=== PATIENT | female | born 1940 | race Caucasian/White ===

== ENCOUNTER 2016-11-25 05:47 | Emergency (ER) | payer MEDICARE, OTHER ==
[2016-11-25 06:14] VITALS: PULSE 60
[2016-11-25 06:35] LABS: Mean Cell Volume 92.2 fl (78-100); Mean Corpuscular Hemoglobin 29.1 pg (26-32); Mean Platelet Volume 10.3 fl (6-9.5); Platelet Count 239 K/mm3 (150-450); Red Blood Count 4.08 M/mm3 (4.1-5.4); Red Cell Distribution Width 15.8 % (11.5-14.0); White Blood Count 10.4 K/mm3 (4.0-10.5)
[2016-11-25 06:48] LABS: INR 1.27 (0.8-3.0); PROTIME 14.1 SECONDS (9.95-12.35)
[2016-11-25 06:50] LABS: ANION GAP 6.8 MEQ/L (5-15); BLOOD UREA NITROGEN 20 mg/dL (9-20); Basophil 1 % (0.0-1.0); CHLORIDE 104 mEq/L (98-107); Carbon Dioxide 31.8 mEq/L (21-32); Eosinophil 6 % (0.00-3.0); Glucose 131 MG/DL (70-110); Platelet Estimate NORMAL (NORMAL); Potassium 4.2 mEq/L (3.5-5.1); SODIUM 138 mEq/L (136-145); Total Cells Counted 100
--- NOTE | 2016-11-25 07:09 | ERPHSYRPT ---
- History of Present Illness Time Seen by Provider: 11/25/16 06:20 Source: patient, EMS Patient Subjective Stated Complaint: per ems, pt was being taken to shower and the shower chair tipped over and she fell out. pt states she hit her head and back. denies pain elsewhere Triage Nursing Assessment: papt alert and answers questions. repetittive speech at times. respirations nonlabored with lungs cta. 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 lower ext weakness noted, pt states is ner norm. bruising noted to lt chest around paemaker. bruising noted to lt abd. bleeding from head noted with small lac and hematoma. sutured by dr goldstein. Physician History: PATIENT WITH HISTORY OF TYPE 2 DIABETES, HYPERTENSION, PACEMAKER INSERTION SLIPPED OUT OF CHAIR IN SHOWER SUSTAINED BLEEDING FROM BACK OF HEAD AT SITE OF SCALP STAPLE, BLEEDING FROM WOUND. DENIES LOSS OF CONSCIOUSNESS, NECK PAIN, FOCAL NUMBNESS, TINGLING OR WEAKNESS IN EXTREMITIES. HAS PAIN IN LEFT LOWER LEG. Occurred: just prior to arrival Reason for Fall: slipped Injuries/Pain Location: head Loss of Consciousness: no loss of consciousness Quality: fullness Severity of Pain-Max: mild Modifying Factors: Improves With: cold therapy Associated Symptoms (Fall): denies symptoms Allergies/Adverse Reactions: Penicillins Allergy (Verified 11/25/16 06:24) Hives Home Medications: Glipizide 5 mg [Glucotrol 5 MG] 10 mg PO DAILY 03/04/14 [History] Apixaban [Eliquis] 2.5 mg PO BID 11/25/16 [History] Aspirin 81 mg PO DAILY 11/25/16 [History] Calcium Carbonate [Calcium] 500 mg PO DAILY 11/25/16 [History] Donepezil HCl 10 mg [Aricept 10 MG] 10 mg PO BID 11/25/16 [History] Glucagon 1 mg [GlucaGen 1 MG] 1 mg .ROUTE 11/25/16 [History] Hydrochlorothiazide 25 mg [hydroDIURIL 25 MG] 12.5 mg PO DAILY 11/25/16 [ History] Insulin Detemir [Levemir] 10 unit SQ HS 11/25/16 [History] Lisinopril 20 mg [Zestril 20 MG] 20 mg PO DAILY 11/25/16 [History] Magnesium Hydroxide 30 ml [Milk of Magnesia 30 ml] 30 ml PO BID PRN [History] Magnesium Oxide 400 mg [Mag-Ox 400] 400 mg PO BID 11/25/16 [History] Memantine HCl [Namenda Xr] 28 mg PO DAILY 11/25/16 [History] Potassium Chloride 20 Meq [Klor-Con 20 MEQ] 20 meq PO DAILY 11/25/16 [History] Hx Tetanus, Diphtheria Vaccination/Date Given: Yes (UNKNOWN) Hx Influenza Vaccination/Date Given: Yes Hx Pneumococcal Vaccination/Date Given: Yes - Review of Systems Constitutional: No Fever, No Chills Eyes: No Symptoms Ears, Nose, & Throat: No Symptoms Respiratory: No Symptoms, No Cough, No Dyspnea Cardiac: No Symptoms, No Chest Pain, No Edema, No Syncope Abdominal/Gastrointestinal: No Abdominal Pain, No Nausea, No Vomiting, No Diarrhea Genitourinary Symptoms: No Symptoms, No Dysuria Musculoskeletal: No Symptoms, No Back Pain, No Neck Pain Skin: No Symptoms, No Rash Neurological: No Symptoms, No Dizziness, No Focal Weakness, No Sensory Changes Psychological: No Symptoms Endocrine: No Symptoms All Other Systems: Reviewed and Negative - Past Medical History Pertinent Past Medical History: Yes Neurological History: Dementia, Other ENT History: No Pertinent History Cardiac History: Deep Vein Thrombosis, Hypertension Respiratory History: No Pertinent History Endocrine Medical History: Diabetes Type II Musculoskeletal History: No Pertinent History GI Medical History: No Pertinent History History: No Pertinent History Psycho-Social History: No Pertinent History Female Reproductive Disorders: No Pertinent History Other Medical History: Parkinsons - Past Surgical History Past Surgical History: Yes Neuro Surgical History: No Pertinent History Cardiac: No Pertinent History, Pacemaker Respiratory: No Pertinent History Gastrointestinal: No Pertinent History Genitourinary: No Pertinent History Musculoskeletal: Orthopedic Surgery Female Surgical History: Other Other Surgical History: D&C, tonsils, recent pacemaker - Social History Smoking Status: Never smoker Exposure to second hand smoke: No Drug Use: none Patient Lives Alone: No - Nursing Vital Signs Nursing Vital Signs: Initial Vital Signs Temperature 98.2 F Temperature Source Oral Pulse Rate 60 Respiratory Rate 22 Blood Pressure [] 180/78 Pain Intensity 0 - [place] Coma Score Best Eye Response ([place]): (4) open spontaneously Best Verbal Response ([place]): (5) oriented Best Motor Response ([place]): (6) obeys commands [place] Total: 15 - Physical Exam General Appearance: no apparent distress, alert Head Injury: active bleeding, lacerations (1.2CM LACERATION OCCIPITAL SCALP), swelling (LEFT SUPERIOR OCCIPITAL SCALP, NO EVIDENCE OF STAPLE), tenderness Eye Exam: PERRL/EOMI ENT Exam: airway nml Neck Exam: normal inspection, other (NO POST CERVICAL SPINAL TENDERNESS), No tenderness Respiratory/Chest Exam: normal breath sounds, other (PACEMAKER WITH HEMATOMA YELLOWISH DISCOLORATION), No chest tenderness, No respiratory distress Cardiovascular Exam: normal heart sounds, regular rate/rhythm Gastrointestinal Exam: soft, No tenderness, No distention, No guarding, No ecchymosis Back Exam: normal inspection, No vertebral tenderness Extremity Exam: normal inspection, normal range of motion, pelvis stable, tenderness (LEFT MID THIGH, TENDERNESS LEFT KNEE AND MID LEFT CIFUENTES, NO ECCHYMOSIS, LEFT PEDIS PULSE 2+), No deformities Peripheral Pulses: carotid (R): 2+, carotid (L): 2+, femoral (R): 2+, femoral (L ): 2+, dorsalis-pedis (R): 2+, dorsalis-pedis (L): 2+ Neurologic Exam: alert, oriented x 3, cooperative, sensation nml, No motor deficits Skin Exam: normal color, warm, dry SpO2 Interpretation: normal SpO2: 98 Oxygen Delivery: Room Air Procedures - Laceration/Wound Repair Head Wound Location: head (OCCIPITAL SCALP, NO EVIDENCE OF FOREIGN BODY) Wound Length (cm): 1.2 Wound's Depth, Shape: linear Wound Explored: clean Irrigated: Yes Hibiclens Prep: Yes Anesthesia: local, 2% Lidocaine Volume Anesthetic (ccs): 3 Wound Repaired With: sutures Suture Size/Type: 3-0, nylon - Radiology Exams Pelvis X-ray Interpretation: Interpreted by me, Negative, No Fracture Left Lower Leg X-ray Interpretation: Interpreted by me, No Fracture Left Femur X-ray Interpretation: Interpreted by me, Negative, No Fracture Left Knee X-ray Interpretation: Interpreted by me, Negative, No Fracture - CT Exams Cervical Spine CT Interpretation: Tele-radiologist Report, DJD (MILD CHANGES), No Fracture, No Subluxation Head CT Interpretation: Tele-radiologist Report, No/Intracranial Hemorrhag Ordered Tests: Active Orders 24 hr Category Date Time Status CERVICAL SPINE WO CONTRAST [CT] Stat Exams 11/25/16 06:17 Taken FEMUR Stat Exams 11/25/16 06:18 Taken HEAD WITHOUT CONTRAST [CT] Stat Exams 11/25/16 06:17 Taken KNEE (3 VIEWS) Stat Exams 11/25/16 06:19 Taken LOWER LEG Stat Exams 11/25/16 06:19 Taken PELVIS (1 OR 2 VIEWS) Stat Exams 11/25/16 06:18 Taken BMP Stat Lab 11/25/16 06:30 Completed CBC W DIFF Stat Lab 11/25/16 06:30 Completed Manual Differential NC Stat Lab 11/25/16 06:30 Completed PROTIME WITH INR Stat Lab 11/25/16 06:30 Completed Lab/Rad Data: Laboratory Result Diagrams 11/25/16 06:30 11/25/16 06:30 Laboratory Results 11/25/16 11/25/16 11/25/16 Range/Units 06:30 06:30 06:30 WBC 10.4 (4.0-10.5) K/mm3 RBC 4.08 L (4.1-5.4) M/mm3 Hgb 11.9 L (12.0-16.0) gm/dl Hct 37.6 (35-47) % MCV 92.2 (78-100) fl MCH 29.1 (26-32) pg MCHC 31.6 L (32-36) g/dl RDW 15.8 H (11.5-14.0) % Plt Count 239 (150-450) K/mm3 MPV 10.3 H (6-9.5) fl Segmented Neutrophils 74 H (36.0-66.0) % Lymphocytes (Manual) 15 L (24-44) % Monocytes (Manual) 4 (0.0-12.0) % Eosinophils (Manual) 6 H (0.00-3.0) % Basophils (Manual) 1 (0.0-1.0) % Differential Comment NORMAL Platelet Estimate NORMAL (NORMAL) INR 1.27 (0.8-3.0) Sodium 138 (136-145) mEq/L Potassium 4.2 (3.5-5.1) mEq/L Chloride 104 (98-107) mEq/L Carbon Dioxide 31.8 (21-32) mEq/L Anion Gap 6.8 (5-15) MEQ/L BUN 20 (9-20) mg/dL Creatinine 0.93 (0.55-1.30) mg/dl Estimated GFR > 60 ML/MIN Glucose 131 H (70-110) MG/DL Calcium 8.7 (8.5-10.1) mg/dL - Progress Counseled pt/family regarding: lab results, diagnosis, need for follow-up, rad results - Departure Time of Disposition: 07:30 Departure Disposition: Home Clinical Impression: OCCIPITAL SCALP LACERATION, CONTUSION LEFT KNEE, CIFUENTES Condition: Stable Critical Care Time: No Referrals: CLIFF LOWRY [Primary Care Provider] - Additional Instructions: CONTINUE ALL CURRENT MEDICATIONS. CONSULT YOUR FAMILY PHYSICIAN FOR FOLLOWUP IN 1 WEEK.
[2016-11-25 07:39] VITALS: BP 180/78
[2016-11-25 07:42] VITALS: O2SAT 98
--- NOTE | 2016-11-25 09:19 | XRAY ---
Indication: Pain following fall. Multiple contiguous axial images obtained through the head without contrast. Comparison: None Age-appropriate global atrophy and minimal periventricular degenerative micro-ischemia bilateral periaortic acute intracranial hemorrhage, abnormal extra-axial fluid collection, or mass effect. Fourth ventricle is midline without hydrocephalus. Small left posterior scalp hematoma. Bony calvarium intact. Visualized paranasal sinuses and mastoid air cells are pneumatized and clear. Impression: 1. Left posterior scalp hematoma. No underlying fracture or acute intracranial abnormalities. 2. Global atrophy and degenerative micro-ischemia consistent with patient's age. Comment: Preliminary interpretation was made by [facility]. No discrepancy. CT DI 52.13
--- NOTE | 2016-11-25 09:21 | XRAY ---
Indication: Pain following fall. Multiple contiguous axial images obtained through the cervical spine. Sagittal and coronal reformatted images obtained. Comparison: None Axial images negative for acute fracture, suspicious bony lesions, or spinal canal stenosis. Very minimal multilevel degenerative facet arthropathy. Sagittal and coronal reformatted images demonstrates normal alignment with disc spaces maintained. No acute compression fracture, subluxation, or jumped facet. Normal-appearing craniocervical junction. Visualized noncontrasted soft tissues demonstrates mild carotid calcifications bilaterally. Lung apices clear. CT head reported separately. Impression: Minimal degenerative changes. Negative for acute fracture/subluxation. Comment: Preliminary interpretation was made by [facility]. No discrepancy. CT DI 113.36
--- NOTE | 2016-11-25 09:27 | XRAY ---
Indication: Pain following fall. Comparison: None 3 views of the left knee demonstrates osteopenia, previous total knee arthroplasty with intact prosthesis, and faint vascular calcifications. No other bony, articular, or soft tissue abnormalities.
--- NOTE | 2016-11-25 09:27 | XRAY ---
Indication: Pain following fall. Comparison: None 2 views of the left lower leg demonstrates osteopenia, previous total knee arthroplasty, tiny heel spurs, and faint vascular calcifications. No other bony, articular, or soft tissue abnormalities.
--- NOTE | 2016-11-25 09:29 | XRAY ---
Indication: Pain following fall. Comparison: None AP pelvis demonstrates osteopenia, old proximal left femur fracture with 3 intact orthopedic screws, bilateral superior acetabular spurring/sclerosis, lower lumbar degenerative changes, and pelvic phleboliths. No other bony, articular, or soft tissue abnormalities.
--- NOTE | 2016-11-25 09:30 | XRAY ---
Indication: Pain following fall. Comparison: None 2 views of the left femur demonstrates osteopenia, old proximal femur fracture with 3 intact orthopedic screws, total knee arthroplasty, superior acetabular spurring/sclerosis, scattered faint vascular calcifications, and pelvic phleboliths. No other bony, articular, or soft tissue abnormalities.
== END 2016-11-25 08:23 ==
LOC: ED 05:47
PROC: 0HQ0XZZ Repair Scalp Skin, External Approach (ICD-10-PCS; principal; 2016-11-25)
DX: S01.01XA Laceration without foreign body of scalp, initial encounter (principal); S80.02XA Contusion of left knee, initial encounter; S80.12XA Contusion of left lower leg, initial encounter; W07.XXXA Fall from chair, initial encounter; Y93.E1 Activity, personal bathing and showering; Y92.128 Other place in nursing home as the place of occurrence of the external cause; E11.9 Type 2 diabetes mellitus without complications; I10 Essential (primary) hypertension; Z95.0 Presence of cardiac pacemaker; M54.2 Cervicalgia; R20.2 Paresthesia of skin; M79.662 Pain in left lower leg
CPT/HCPCS: 12001; 36415; 70450; 72125; 72170; 73552; 73562; 73590; 80048; 85025; 85610; 99284

== ENCOUNTER 2016-12-18 22:17 | Emergency (ER) | payer MEDICARE, OTHER ==
[2016-12-18 22:23] VITALS: PULSE 65
--- NOTE | 2016-12-18 22:49 | ERPHSYRPT ---
- History of Present Illness Time Seen by Provider: 12/18/16 22:42 Source: patient Exam Limitations: no limitations Patient Subjective Stated Complaint: pt states she had ce removed from her head a few weeks ago. states she was combing her hair tonight and her head began bleeding again. cont to bleed for a few hours before coming to er. Triage Nursing Assessment: pt alert and oriented, answers questions approp. pt in per wheelchair, transfers from wheelchair to stretcher with assist of 2. unsteady gait noted. skin pink warm and dry. hematoma noted to top lt head with steady bleeding. pressure applied and bulky drsg applied. Physician History: The patient is a 76-year-old female who comes in from assisted living skilled nursing where she has helped for dementia complaining that she riggins her hair tonight and caused bleeding at the site of a skin treatment a few weeks ago. She is a poor historian. She states she had 2 lumps frozen on the top of her head several weeks ago. She also said that after that she fell out of her wheelchair causing a cut to the top of her head that was repaired with ce. The ce have been removed. Tonight the comb scraped the lumps that had been frozen causing 1 to bleed. She takes Elaquis but doesn't know why. Her past medical history is significant for dementia, hypertension, diabetes, and recent skin disorder of her scalp. Timing/Duration: hour(s) (3) Quality: other (bleeding) Severity: moderate Location: scalp Possible Causes: other (scrape to skin lesion) Modifying Factors: Improves With: other Associated Symptoms: denies symptoms Allergies/Adverse Reactions: Penicillins Allergy (Verified 12/18/16 22:42) Hives Home Medications: Glipizide 5 mg [Glucotrol 5 MG] 10 mg PO DAILY 03/04/14 [History] Apixaban [Eliquis] 2.5 mg PO BID 11/25/16 [History] Aspirin 81 mg PO DAILY 11/25/16 [History] Calcium Carbonate [Calcium] 500 mg PO DAILY 11/25/16 [History] Donepezil HCl 10 mg [Aricept 10 MG] 10 mg PO BID 11/25/16 [History] Glucagon 1 mg [GlucaGen 1 MG] 1 mg .ROUTE 11/25/16 [History] Hydrochlorothiazide 25 mg [hydroDIURIL 25 MG] 12.5 mg PO DAILY 11/25/16 [ History] Insulin Detemir [Levemir] 10 unit SQ HS 11/25/16 [History] Lisinopril 20 mg [Zestril 20 MG] 20 mg PO DAILY 11/25/16 [History] Magnesium Hydroxide 30 ml [Milk of Magnesia 30 ml] 30 ml PO BID PRN [History] Magnesium Oxide 400 mg [Mag-Ox 400] 400 mg PO BID 11/25/16 [History] Memantine HCl [Namenda Xr] 28 mg PO DAILY 11/25/16 [History] Potassium Chloride 20 Meq [Klor-Con 20 MEQ] 20 meq PO DAILY 11/25/16 [History] Hx Tetanus, Diphtheria Vaccination/Date Given: Yes (UNKNOWN) Hx Influenza Vaccination/Date Given: Yes Hx Pneumococcal Vaccination/Date Given: Yes - Review of Systems Constitutional: No Fever, No Chills Eyes: No Symptoms Ears, Nose, & Throat: No Symptoms Respiratory: No Cough, No Dyspnea Cardiac: No Chest Pain, No Edema, No Syncope Abdominal/Gastrointestinal: No Abdominal Pain, No Nausea, No Vomiting, No Diarrhea Genitourinary Symptoms: No Dysuria Musculoskeletal: No Back Pain, No Neck Pain Skin: Skin Lesions Neurological: No Dizziness, No Focal Weakness, No Sensory Changes Psychological: No Symptoms Endocrine: No Symptoms Hematologic/Lymphatic: No Symptoms Immunological/Allergic: No Symptoms All Other Systems: Reviewed and Negative - Past Medical History Pertinent Past Medical History: Yes Neurological History: Dementia, Other ENT History: No Pertinent History Cardiac History: Deep Vein Thrombosis, Hypertension Respiratory History: No Pertinent History Endocrine Medical History: Diabetes Type II Musculoskeletal History: No Pertinent History GI Medical History: No Pertinent History History: No Pertinent History Psycho-Social History: No Pertinent History Female Reproductive Disorders: No Pertinent History Other Medical History: Parkinsons - Past Surgical History Past Surgical History: Yes Neuro Surgical History: No Pertinent History Cardiac: No Pertinent History, Pacemaker Respiratory: No Pertinent History Gastrointestinal: No Pertinent History Genitourinary: No Pertinent History Musculoskeletal: Orthopedic Surgery Female Surgical History: Other Other Surgical History: D&C, tonsils, recent pacemaker - Social History Smoking Status: Never smoker Exposure to second hand smoke: No Drug Use: none Patient Lives Alone: No - Nursing Vital Signs Nursing Vital Signs: Initial Vital Signs Temperature 98.1 F Temperature Source Oral Pulse Rate 65 Respiratory Rate 18 Blood Pressure [Right Arm] 140/79 Pain Intensity 3 - Physical Exam General Appearance: no apparent distress, alert Eye Exam: PERRL/EOMI, eyes nml inspection Ears, Nose, Throat Exam: normal ENT inspection, pharynx normal, moist mucous membranes Neck Exam: normal inspection, non-tender, supple, full range of motion Respiratory Exam: normal breath sounds, lungs clear, No respiratory distress Cardiovascular Exam: regular rate/rhythm, normal heart sounds Gastrointestinal/Abdomen Exam: soft, mass, No tenderness Pelvic Exam: not done, uterine tenderness Back Exam: normal inspection, normal range of motion, No CVA tenderness, No vertebral tenderness Extremity Exam: normal inspection, normal range of motion Neurologic Exam: alert, oriented x 3, cooperative, normal mood/affect, sensation nml, No motor deficits Skin Exam: other (Examination of the scalp reveals at the left side of the occiput a swollen area that appears to have a hemangioma under the surface. There is a small pinpoint opening that is slowly bleeding. Slight pressure does cause stasis bleeding.) SpO2 Interpretation: normal SpO2: 96 Oxygen Delivery: Room Air Procedures - Laceration/Wound Repair Left Occipital Wound Location: Left, head Wound Length (cm): 1.5 (hemagioma) Wound's Depth, Shape: superficial Wound Explored: clean Hibiclens Prep: Yes Progress: 12/18/16 23:05 The patient has had apparently looks like a 1.5 cm hemangioma the left side of the occiput on the scalp. There is a small region of the hemangioma that is oozing blood. An attempt was made with for several nitrate sticks to stop the bleeding. The hemangioma was quickly wrapped with a pressure dressing. Patient tolerated the procedure well. There was stasis of the bleeding at the time of application of the pressure bandage. 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 A heme angioma is a collection of blood vessels. This site has started to bleed. Silver nitrate was applied to stop the bleeding as well as application of a pressure bandage. Keep the bandage in place. Call the physician you saw for treatment of these hemangiomas for follow -up within 1-2 days.
[2016-12-18] MEDS ORDERED: ARZOL Silver Nitrate Applicator TP ONE (22:51)
[2016-12-18] MEDS ORDERED: ARZOL Silver Nitrate Applicator TP SCH (23:00)
[2016-12-18 23:31] VITALS: BP 114/50; O2SAT 97
== END 2016-12-18 23:30 | disposition home or self-care (01) ==
LOC: ED 22:17
DX: D18.09 Hemangioma of other sites (principal); Z79.01 Long term (current) use of anticoagulants
CPT/HCPCS: 99283; A9270-GY

== ENCOUNTER 2017-09-24 16:33 | Inpatient (IN) | payer MEDICARE, OTHER ==
[2017-09-24] MEDS ORDERED: Sodium Chloride 0.9% 1000 ML 1,000 ML IV SCH (17:15)
--- NOTE | 2017-09-24 17:17 | ERPHSYRPT ---
- History of Present Illness Time Seen by Provider: 09/24/17 17:11 Source: patient Exam Limitations: no limitations Patient Subjective Stated Complaint: nh and ems report patient has had low b/p today. patient denies any c/o at this time Triage Nursing Assessment: arrives per ems. skin cool to touch, nailbeds dusky. resp nonlabored. has no c/o at this time. patient normally confused but is alert and answering questions. Physician History: 77-year-old white female with history of dementia, DVT, hypertension, type 2 diabetes, Parkinson's and cardiac pacemaker. Patient arrives via medics patient apparently was noted to have decreased blood pressure at the detention. states she has had some states she has had some pain in her hands that she denies any other complaints. She arrives with a blood pressure 122/46 sats are 99% temperature is 96.7 rectally. Past medical history includes dementia, DVT, hypertension, diabetes type 2, Parkinson's. Past surgical history includes pacer, orthopedic surgery, tonsils. Timing/Duration: today Severity: moderate Modifying Factors: Improves With: nothing Associated Symptoms: weakness, other (decreased blood pressure at detention) , No nausea, No vomiting, No abdominal pain, No shortness of breath, No heartburn, No diaphoresis, No cough, No chills, No chest pain, No fever, No headaches, No loss of appetite, No malaise, No rash, No syncope, No seizure Allergies/Adverse Reactions: Penicillins Allergy (Verified 12/18/16 22:42) Hives Home Medications: Glipizide 5 mg [Glucotrol 5 MG] 10 mg PO DAILY 03/04/14 [History] Apixaban [Eliquis] 2.5 mg PO BID 11/25/16 [History] Aspirin 81 mg PO DAILY 11/25/16 [History] Calcium Carbonate [Calcium] 500 mg PO DAILY 11/25/16 [History] Donepezil HCl 10 mg [Aricept 10 MG] 10 mg PO BID 11/25/16 [History] Glucagon 1 mg [GlucaGen 1 MG] 1 mg .ROUTE 11/25/16 [History] Hydrochlorothiazide 25 mg [hydroDIURIL 25 MG] 12.5 mg PO DAILY 11/25/16 [ History] Insulin Detemir [Levemir] 10 unit SQ HS 11/25/16 [History] Lisinopril 20 mg [Zestril 20 MG] 20 mg PO DAILY 11/25/16 [History] Magnesium Hydroxide 30 ml [Milk of Magnesia 30 ml] 30 ml PO BID PRN [History] Magnesium Oxide 400 mg [Mag-Ox 400] 400 mg PO BID 11/25/16 [History] Memantine HCl [Namenda Xr] 28 mg PO DAILY 11/25/16 [History] Potassium Chloride 20 Meq [Klor-Con 20 MEQ] 20 meq PO DAILY 11/25/16 [History] Hx Tetanus, Diphtheria Vaccination/Date Given: Yes Hx Influenza Vaccination/Date Given: Yes Hx Pneumococcal Vaccination/Date Given: Yes - Review of Systems Constitutional: Weakness Eyes: No Symptoms Ears, Nose, & Throat: No Symptoms Respiratory: No Cough, No Dyspnea Cardiac: No Chest Pain, No Edema, No Syncope Abdominal/Gastrointestinal: No Abdominal Pain, No Nausea, No Vomiting, No Diarrhea Genitourinary Symptoms: No Dysuria Musculoskeletal: Other (Patient states she has pain in her hands), No Back Pain , No Neck Pain Neurological: No Dizziness, No Focal Weakness, No Sensory Changes Psychological: No Symptoms Endocrine: No Symptoms All Other Systems: Reviewed and Negative - Past Medical History Pertinent Past Medical History: Yes Neurological History: Dementia, Other ENT History: No Pertinent History Cardiac History: Deep Vein Thrombosis, Hypertension Respiratory History: No Pertinent History Endocrine Medical History: Diabetes Type II Musculoskeletal History: No Pertinent History GI Medical History: No Pertinent History History: No Pertinent History Psycho-Social History: No Pertinent History Female Reproductive Disorders: No Pertinent History Other Medical History: Parkinsons - Past Surgical History Past Surgical History: Yes Neuro Surgical History: No Pertinent History Cardiac: No Pertinent History, Pacemaker Respiratory: No Pertinent History Gastrointestinal: No Pertinent History Genitourinary: No Pertinent History Musculoskeletal: Orthopedic Surgery Female Surgical History: Other Other Surgical History: D&C, tonsils, recent pacemaker - Social History Smoking Status: Never smoker Exposure to second hand smoke: No Drug Use: none Patient Lives Alone: No - Female History Hx Now: No - Nursing Vital Signs Nursing Vital Signs: Initial Vital Signs Temperature 96.7 F 02/11/18 16:34 Pulse Rate 66 09/24/17 16:34 Respiratory Rate 20 09/24/17 16:34 Blood Pressure 122/46 09/24/17 16:34 O2 Sat by Pulse Oximetry 99 09/24/17 16:34 Pain Scale Pain Intensity 4 - Physical Exam General Appearance: other (Elderly white female somewhat somnolent arouses easily oriented to person and place) Eye Exam: PERRL/EOMI, eyes nml inspection Ears, Nose, Throat Exam: normal ENT inspection, TMs normal, pharynx normal, moist mucous membranes Neck Exam: normal inspection, non-tender, supple, full range of motion Respiratory Exam: normal breath sounds, lungs clear, No respiratory distress Cardiovascular Exam: regular rate/rhythm, normal heart sounds, normal peripheral pulses Gastrointestinal/Abdomen Exam: soft, normal bowel sounds, No tenderness, No mass Back Exam: normal inspection, normal range of motion, No CVA tenderness, No vertebral tenderness Extremity Exam: normal inspection, normal range of motion, pelvis stable Neurologic Exam: other (somnolent and arouses easily, cranial nerves II through XII intact, oriented to person and place,moves all extremities) Skin Exam: other (peripheral extremity somewhat dusky) Lymphatic Exam: No adenopathy SpO2 Interpretation: normal SpO2: 99 Oxygen Delivery: Room Air - Course Nursing assessment & vital signs reviewed: Yes EKG Interpreted by Me: RATE (64 bpm), Other (EKG paced rhythm, 64 bpm, normal axis, no acute ST or T wave changes) - Radiology Exams Chest X-ray Interpretation: Interpreted by me, Other (no acute disease process noted.) Ordered Tests: Active Orders 24 hr Category Date Time Status Accucheck STAT Care 09/24/17 17:11 Active EKG-ER Only STAT Care 09/24/17 17:08 Active Werner [Catheter-[place] Werner] STAT Care 09/24/17 17:54 Active IV Insertion STAT Care 09/24/17 17:08 Active CHEST 1 VIEW (PORTABLE) Stat Exams 09/24/17 17:09 Taken AMYLASE Stat Lab 09/24/17 17:42 Completed BLOOD CULTURE Stat Lab 09/24/17 17:42 Received CBC W DIFF Stat Lab 09/24/17 17:42 Completed CMP Stat Lab 09/24/17 17:42 Completed CULTURE,URINE Stat Lab 09/24/17 17:41 Received LIPASE Stat Lab 09/24/17 17:42 Completed Lactic Acid Stat Lab 09/24/17 17:08 Completed Manual Differential NC Stat Lab 09/24/17 17:42 Completed NT PRO BNP Routine Lab 09/24/17 17:42 Completed TROPONIN Q3H Lab 09/24/17 17:42 Completed TROPONIN Q3H Lab 09/24/17 20:15 Ordered TROPONIN Q3H Lab 09/24/17 23:15 Ordered TROPONIN Q3H Lab 09/25/17 02:15 Ordered TROPONIN Q3H Lab 09/25/17 05:15 Ordered UA W/ MICROSCOPIC Stat Lab 09/24/17 17:09 Completed VENOUS BLOOD GAS Stat Lab 09/24/17 17:10 Completed Transfer Order Routine Transfer 09/24/17 Ordered Medication Summary Generic Name Dose Route Start Last Admin Trade Name Freq PRN Reason Stop Dose Admin Sodium Chloride 1,000 mls @ 100 mls/hr 09/24/17 17:15 09/24/17 17:29 Sodium Chloride 0.9% 1000 Ml IV 10/24/17 17:14 100 mls/hr .Q10H ZEUS Administration Lab/Rad Data: Laboratory Result Diagrams 09/24/17 17:42 09/24/17 17:42 Laboratory Results 09/24/17 09/24/17 09/24/17 Range/Units 17:42 17:42 17:42 WBC 20.0 H (4.0-10.5) K/mm3 RBC 4.25 (4.1-5.4) M/mm3 Hgb 13.2 (12.0-16.0) gm/dl Hct 40.2 (35-47) % MCV 94.6 (78-100) fl MCH 31.1 (26-32) pg MCHC 32.8 (32-36) g/dl RDW 15.6 H (11.5-14.0) % Plt Count 264 (150-450) K/mm3 MPV 12.0 H (6-9.5) fl Segmented Neutrophils 87 H (36.0-66.0) % Band Neutrophils 1 (0.0-2.0) % Lymphocytes (Manual) 9 L (24-44) % Monocytes (Manual) 3 (0.0-12.0) % Differential Comment NORMAL Platelet Estimate NORMAL (NORMAL) VBG pH (7.32-7.42) VBG pCO2 at Pat Temp (42-55) mm/Hg VBG pO2 at Pat Temp (25-40) mm/Hg VBG HCO3 (22-28) meq/L VBG O2 Sat ([place]) (95-100) VBG Base Excess (-2.0-2.0) VBG Hemoglobin VBG Carboxyhemoglobin (0.0-6.9) % T HGB POC Potassium (3.5-5.1) Sodium 136 (136-145) mEq/L Potassium 5.3 H (3.5-5.1) mEq/L Chloride 104 (98-107) mEq/L Carbon Dioxide 21.6 (21-32) mEq/L Anion Gap 15.7 H (5-15) MEQ/L BUN 56 H (9-20) mg/dL Creatinine 3.34 H (0.55-1.30) mg/dl Estimated GFR 14 ML/MIN Glucose 350 H (70-110) MG/DL Lactic Acid (0.4-2.0) Calcium 9.4 (8.5-10.1) mg/dL Total Bilirubin 0.60 (0.2-1.0) mg/dL AST 25 (15-37) U/L ALT 9 L (12-78) U/L Alkaline Phosphatase 69 (46-116) U/L Troponin I < 0.017 (0.000-0.056) ng/ml NT-Pro-B Natriuret Pep 616 H (0-450) pg/ml Serum Total Protein 7.5 (6.4-8.2) gm/dL Albumin 3.8 (3.4-5.0) g/dL Amylase 77 (25-115) U/L Lipase 385 (73-393) U/L Ur Collection Type Urine Color (YELLOW) Urine Appearance (CLEAR) Urine pH (5-6) Ur Specific [place] (1.005-1.025) Urine Protein (Negative) Urine Ketones (NEGATIVE) Urine Blood (0-5) Dago/ul Urine Nitrite (NEGATIVE) Urine Bilirubin (NEGATIVE) Urine Urobilinogen (0-1) mg/dL Ur Leukocyte Esterase (NEGATIVE) Urine Microscopic RBC (0-2) /HPF Urine Microscopic WBC (0-5) /HPF Ur Epithelial Cells (FEW) /HPF Amorphous Crystals (NEGATIVE) /HPF Urine Bacteria (NEGATIVE) /HPF Urine Mucus (NEGATIVE) /HPF Urine Culture Reflexed Urine Glucose (NEGATIVE) mg/dL Specimen Received 09/24/17 09/24/17 09/24/17 Range/Units 17:10 17:09 17:08 WBC (4.0-10.5) K/mm3 RBC (4.1-5.4) M/mm3 Hgb (12.0-16.0) gm/dl Hct (35-47) % MCV (78-100) fl MCH (26-32) pg MCHC (32-36) g/dl RDW (11.5-14.0) % Plt Count (150-450) K/mm3 MPV (6-9.5) fl Segmented Neutrophils (36.0-66.0) % Band Neutrophils (0.0-2.0) % Lymphocytes (Manual) (24-44) % Monocytes (Manual) (0.0-12.0) % Differential Comment Platelet Estimate (NORMAL) VBG pH 7.30 L (7.32-7.42) VBG pCO2 at Pat Temp 47 (42-55) mm/Hg VBG pO2 at Pat Temp 16 L (25-40) mm/Hg VBG HCO3 23.1 (22-28) meq/L VBG O2 Sat ([place]) 30.9 L (95-100) VBG Base Excess -3.6 L (-2.0-2.0) VBG Hemoglobin 13.9 VBG Carboxyhemoglobin 1.6 (0.0-6.9) % T HGB POC Potassium 5.4 H (3.5-5.1) Sodium (136-145) mEq/L Potassium (3.5-5.1) mEq/L Chloride (98-107) mEq/L Carbon Dioxide (21-32) mEq/L Anion Gap (5-15) MEQ/L BUN (9-20) mg/dL Creatinine (0.55-1.30) mg/dl Estimated GFR ML/MIN Glucose (70-110) MG/DL Lactic Acid 1.2 (0.4-2.0) Calcium (8.5-10.1) mg/dL Total Bilirubin (0.2-1.0) mg/dL AST (15-37) U/L ALT (12-78) U/L Alkaline Phosphatase (46-116) U/L Troponin I (0.000-0.056) ng/ml NT-Pro-B Natriuret Pep (0-450) pg/ml Serum Total Protein (6.4-8.2) gm/dL Albumin (3.4-5.0) g/dL Amylase (25-115) U/L Lipase (73-393) U/L Ur Collection Type CATH Urine Color YELLOW (YELLOW) Urine Appearance CLOUDY (CLEAR) Urine pH 5.0 (5-6) Ur Specific [place] 1.020 (1.005-1.025) Urine Protein 30 (Negative) Urine Ketones NEGATIVE (NEGATIVE) Urine Blood 50 (0-5) [place]ago/ul Urine Nitrite NEGATIVE (NEGATIVE) Urine Bilirubin NEGATIVE (NEGATIVE) Urine Urobilinogen NORMAL (0-1) mg/dL Ur Leukocyte Esterase NEGATIVE (NEGATIVE) Urine Microscopic RBC 2-5 (0-2) /HPF Urine Microscopic WBC 2-5 (0-5) /HPF Ur Epithelial Cells MODERATE (FEW) /HPF Amorphous Crystals MODERATE (NEGATIVE) /HPF Urine Bacteria MODERATE (NEGATIVE) /HPF Urine Mucus MODERATE (NEGATIVE) /HPF Urine Culture Reflexed Cancelled Urine Glucose 1000 (NEGATIVE) mg/dL Specimen Received 09/24/17 1755 - Progress Progress: improved Progress Note: 09/24/17 18:43 77-year-old white female brought from the detention with complaint of decreased blood pressure at the detention. On arrival patient was somnolent but aroused easily she had dusky coloration to her fingers and had been complaining of some pain in her hands. Patient had a normal oxygen saturation in the emergency room this was taken on her ear. Patient with an EKG which showed paced rhythm 64 bpm normal axis no acute ST or T wave changes. Patient was also noted to have a chest x-ray which was normal patient was noted to have a pH of 7.3 and a PCO2 of 47 venous gases lactate was 1.2 urinalysis specific gravity 1.20 pH 52-5 red cells 2-5 white cells patient' s white count was elevated at 20 hemoglobin was 13 hematocrit 40.2 patient was noted to have an elevated BUN of 56 creatinine of 2.34 sodium of 136 and potassium was elevated at 5.3 patient had a BNP of 616 troponin was less than 0.017 Patient was given IV normal saline initially started at 125 mL per hour then given a bolus of 250 mL and then IV was turned down to 125 mL per hour. Patient was afebrile. On recheck patient's lungs were clear patient appeared to be more awake and alert she had improved color of her distal extremities. I discussed the case with Dr. Brooks. Will plan to place patient on observation telemetry. It is noted that patient is a DO NOT RESUSCITATE status. Patient will be continued with IV fluids CBC CMP in the morning. Blood cultures urine cultures are pending. - Departure Time of Disposition: 17:20 Departure Disposition: Observation Clinical Impression: Dehydration Renal failure Qualifiers: Renal failure chronicity: unspecified chronicity Qualified Code(s): N19 - Unspecified kidney failure Hypotension Qualifiers: Hypotension type: unspecified hypotension type Qualified Code(s): I95.9 - Hypotension, unspecified Condition: Fair Critical Care Time: No Referrals: JAIME AVILA [Primary Care Provider] -
[2017-09-24] MEDS ORDERED: Sodium Chloride 0.9% 1000 ML 1,000 ML ONE (17:23)
[2017-09-24] MEDS ORDERED: Sodium Chloride 0.9% 1000 ML 0 ML ONE (17:28)
[2017-09-24 17:32] LABS: VBG BASE EXCESS -3.6 (-2.0-2.0); VBG CARBOXYHEMOGLOBIN 1.6 % T HGB (0.0-6.9); VBG HCO3- 23.1 meq/L (22-28); VBG HEMOGLOBIN 13.9; VBG O2 SATURATION 30.9 (95-100); VBG POTASSIUM 5.4 (3.5-5.1); VBG pH 7.3 (7.32-7.42)
[2017-09-24 17:52] LABS: Granulocyte Absolute (ANC) 18.54 (1.4-6.9); Hematocrit 40.2 % (35-47); Hemoglobin 13.2 gm/dl (12.0-16.0); Mean Cell Volume 94.6 fl (78-100); Mean Corpuscular Hemoglobin 31.1 pg (26-32); Mean Corpuscular Hgb Concent. 32.8 g/dl (32-36); Platelet Count 264 K/mm3 (150-450); Red Blood Count 4.25 M/mm3 (4.1-5.4); Red Cell Distribution Width 15.6 % (11.5-14.0)
[2017-09-24 18:09] LABS: Appearance CLOUDY (CLEAR)
[2017-09-24 18:10] LABS: Bilirubin NEGATIVE (NEGATIVE); Blood 50 Ery/ul (0-5); Epithelial Cells MODERATE /HPF (FEW); Glucose 1000 mg/dL (NEGATIVE); Ketones NEGATIVE (NEGATIVE); Leukocyte Esterase NEGATIVE (NEGATIVE); Mucus MODERATE /HPF (NEGATIVE); Nitrite NEGATIVE (NEGATIVE); Protein,Urine Dip 30 (Negative); Urobilinogen NORMAL mg/dL (0-1)
[2017-09-24 18:11] LABS: Amourphous Crystal MODERATE /HPF (NEGATIVE); Bacteria MODERATE /HPF (NEGATIVE)
[2017-09-24 18:16] LABS: ALBUMIN 3.8 g/dL (3.4-5.0); ANION GAP 15.7 MEQ/L (5-15); BILIRUBIN,TOTAL 0.6 mg/dL (0.2-1.0); Calcium 9.4 mg/dL (8.5-10.1); Carbon Dioxide 21.6 mEq/L (21-32); Creatinine 1 3.34 mg/dl (0.55-1.30); Potassium 5.3 mEq/L (3.5-5.1); Total Protein 7.5 gm/dL (6.4-8.2)
[2017-09-24 18:24] LABS: BAND 1 % (0.0-2.0); Lymphocytes 9 % (24-44); Monocyte 3 % (0.0-12.0); Neutrophils 87 % (36.0-66.0); Platelet Estimate NORMAL (NORMAL); Total Cells Counted 100
[2017-09-24 18:26] LABS: NT PRO BNP 616 pg/ml (0-450)
[2017-09-24 18:31] LABS: TROPONIN < 0.017 ng/ml (0.000-0.056)
[2017-09-24] MEDS ORDERED: NovoLOG Insulin SQ PRN (19:52)
[2017-09-24] MEDS: Sodium Chloride 0.9% 1000 ML 1,000 ML IV SCH (20:44)
--- NOTE | 2017-09-24 21:08 | XRAY ---
Indication: Hypertension. Comparison: April 21, 2016. Portable chest demonstrates normal heart and lungs with new left-sided dual-lead pacemaker. Bony thorax intact again with mild osteopenia and degenerative changes. Impression: Nonacute chest with chronic features.
[2017-09-24] MEDS ORDERED: Klor Con 10 MEQ PO SCH (23:30)
[2017-09-24] MEDS ORDERED: Sinemet 25/100 MG ONE (23:43)
[2017-09-24] MEDS: Aricept 10 MG PO SCH (23:49)
[2017-09-24] MEDS: Namenda 5 MG PO SCH (23:49)
[2017-09-24] MEDS: Zocor 10MG PO SCH (23:50)
[2017-09-24] MEDS: ELIQUIS PO SCH (23:50)
[2017-09-24] MEDS: Pepcid 20 MG PO SCH (23:50)
[2017-09-24] MEDS: Sinemet 25/250 MG PO SCH (23:51)
[2017-09-24] MEDS: Lantus Insulin SQ SCH (23:52)
[2017-09-25] MEDS: Sodium Chloride 0.9% 1000 ML 1,000 ML IV SCH (00:38)
[2017-09-25 05:40] LABS: Granulocyte Absolute (ANC) 13.08 (1.4-6.9); Hematocrit 35.2 % (35-47); Hemoglobin 11.3 gm/dl (12.0-16.0); Mean Cell Volume 94.9 fl (78-100); Mean Corpuscular Hgb Concent. 32.1 g/dl (32-36); Mean Platelet Volume 11.8 fl (6-9.5); Platelet Count 230 K/mm3 (150-450); Red Blood Count 3.71 M/mm3 (4.1-5.4); Red Cell Distribution Width 15.5 % (11.5-14.0); White Blood Count 15.9 K/mm3 (4.0-10.5)
[2017-09-25 05:55] LABS: Mean Corpuscular Hemoglobin 30.4 pg (26-32)
[2017-09-25 06:24] LABS: ANION GAP 13.2 MEQ/L (5-15); BILIRUBIN,TOTAL 0.5 mg/dL (0.2-1.0); Calcium 8.5 mg/dL (8.5-10.1); Creatinine 1 2.63 mg/dl (0.55-1.30); Potassium 4.3 mEq/L (3.5-5.1); Total Protein 6.2 gm/dL (6.4-8.2)
[2017-09-25 06:47] LABS: Lymphocytes 22 % (24-44); Monocyte 2 % (0.0-12.0); Neutrophils 76 % (36.0-66.0); Platelet Estimate NORMAL (NORMAL); Total Cells Counted 100
--- NOTE | 2017-09-25 07:45 | PCM.HP ---
History of Present Illness - Chief Complaint Chief Complaint: hypotention, dehydration Date: 09/25/17 History of Present Illness: is a 77 year old female. who has been living at [facility]. She was found to have weakness increased and low bp and low temp and sent to ED. She was found to have acute kidney failure. She currently is only complaining of feeling tired. Denies any pain or nausea. She is unsure if she was eating well or urinating well prior to arrival. - Review of Systems Constitutional: Fatigue, Lethargy, No Fever, No Chills Eyes: No Symptoms Ears, Nose, & Throat: No Symptoms Respiratory: No Cough, No Short Of Breath Cardiac: No Chest Pain, No Edema, No Syncope Abdominal/Gastrointestinal: No Abdominal Pain, No Nausea, No Vomiting, No Diarrhea Genitourinary Symptoms: No Dysuria Musculoskeletal: No Back Pain, No Neck Pain Skin: No Rash Neurological: No Dizziness, No Focal Weakness, No Sensory Changes Psychological: No Symptoms Endocrine: No Symptoms Hematologic/Lymphatic: No Symptoms Immunological/Allergic: No Symptoms Medications & Allergies Home Medications: Home Medication List Apixaban [Eliquis] 2.5 mg PO BID 11/25/16 [History Confirmed 09/24/17] Donepezil HCl 10 mg [Aricept 10 MG] 10 mg PO BID 11/25/16 [History Confirmed 09/24/17] Glucagon 1 mg [GlucaGen 1 MG] 1 mg SQ UD PRN 11/25/16 [History Confirmed 09/24/17] Hydrochlorothiazide 25 mg [hydroDIURIL 25 MG] 12.5 mg PO DAILY 11/25/16 [ History Confirmed 09/24/17] Insulin Detemir [Levemir] 10 unit SQ HS 11/25/16 [History Confirmed 09/24/17] Lisinopril 20 mg [Zestril 20 MG] 20 mg PO DAILY 11/25/16 [History Confirmed 09/24/17] Magnesium Hydroxide 30 ml [Milk of Magnesia 30 ml] 30 ml PO BID PRN PRN [History Confirmed 09/24/17] Alendronate Sodium 70 mg [Fosamax 70 MG] 70 mg PO Q7D@0600 09/24/17 [ History Confirmed 09/24/17] Atorvastatin Calcium 10 mg PO HS 09/24/17 [History Confirmed 09/24/17] Carbidopa/Levodopa [Carbidopa-Levodopa 25-250 Tab] 1 each PO BID 09/24/17 [ History Confirmed 09/24/17] Famotidine [Pepcid] 20 mg PO BID 09/24/17 [History Confirmed 09/24/17] Insulin Aspart [NovoLOG Insulin] 5 units SQ AC 09/24/17 [History Confirmed 07/01] Memantine HCl 10 mg PO BID 09/24/17 [History Confirmed 09/24/17] Multivitamin [Multi-Vitamin Daily] 1 each PO DAILY 09/24/17 [History Confirmed 09/24/17] Potassium Chloride 8 meq PO BID 09/24/17 [History Confirmed 09/24/17] Trimethoprim 100 mg PO DAILY 09/24/17 [History Confirmed 09/24/17] Allergies/Adverse Reactions: Allergies Allergy/AdvReac Type Severity Reaction Status Date / Time Penicillins Allergy Hives Verified 12/18/16 22:42 - Past Medical History Past Medical History: Yes Neurological History: Dementia, Other ENT History: No Pertinent History Cardiac History: Deep Vein Thrombosis, Hypertension Respiratory History: No Pertinent History Endocrine Medical History: Diabetes Type II Musculoskelatal History: No Pertinent History GI Medical History: No Pertinent History History: No Pertinent History Pyscho-Social History: No Pertinent History Reproductive Disorders: No Pertinent History Comment: Parkinsons - Female History Are you now?: No - Past Surgical History Past Surgical History: Yes Neuro Surgical History: No Pertinent History Cardiac History: No Pertinent History, Pacemaker Respiratory Surgery: No Pertinent History GI Surgical History: No Pertinent History Genitourinary Surgical Hx: No Pertinent History Musculskeletal Surgical Hx: Orthopedic Surgery Female Surgical History: Other Other Surgical History: D&C, tonsils, recent pacemaker - Social History Smoking Status: Never smoker Exposure to second hand smoke: No Alcohol: None Drug Use: none - Physical Exam Vital Signs: Vital Signs - 24 hr Temp Pulse Resp BP Pulse Ox 09/25/17 04:00 97.8 F 64 14 117/56 80 L 09/24/17 23:52 97.9 F 63 18 126/56 98 09/24/17 20:30 98.0 F 80 18 132/70 97 09/24/17 19:52 97 09/24/17 19:11 99 09/24/17 18:46 70 18 128/49 09/24/17 17:50 82 18 89/40 09/24/17 17:33 61 18 97/36 99 09/24/17 16:34 96.7 F 66 20 122/46 99 General Appearance: no apparent distress, alert Neurologic Exam: alert, cooperative, normal mood/affect, sensation nml Eye Exam: PERRL/EOMI, eyes nml inspection Ears, Nose, Throat Exam: dry mucous membranes Neck Exam: normal inspection, non-tender, supple, full range of motion Respiratory Exam: normal breath sounds, lungs clear, No respiratory distress Cardiovascular Exam: regular rate/rhythm, normal heart sounds, normal peripheral pulses Gastrointestinal/Abdomen Exam: soft, normal bowel sounds, No tenderness, No mass Back Exam: normal inspection, normal range of motion, No CVA tenderness, No vertebral tenderness Extremity Exam: normal inspection, normal range of motion, pelvis stable Skin Exam: normal color, warm, dry, No rash Lymphatic Exam: No adenopathy Results - Labs Lab/Micro Results: Lab Results-Last 24 Hours 09/24/17 09/24/17 09/25/17 Range/Units 20:13 23:26 02:19 WBC (4.0-10.5) K/mm3 RBC (4.1-5.4) M/mm3 Hgb (12.0-16.0) gm/dl Hct (35-47) % MCV (78-100) fl MCH (26-32) pg MCHC (32-36) g/dl RDW (11.5-14.0) % Plt Count (150-450) K/mm3 MPV (6-9.5) fl Segmented Neutrophils (36.0-66.0) % Lymphocytes (Manual) (24-44) % Monocytes (Manual) (0.0-12.0) % Differential Comment Platelet Estimate (NORMAL) Sodium (136-145) mEq/L Potassium (3.5-5.1) mEq/L Chloride (98-107) mEq/L Carbon Dioxide (21-32) mEq/L Anion Gap (5-15) MEQ/L BUN (9-20) mg/dL Creatinine (0.55-1.30) mg/dl Estimated GFR ML/MIN Glucose (70-110) MG/DL Calcium (8.5-10.1) mg/dL Total Bilirubin (0.2-1.0) mg/dL AST (15-37) U/L ALT (12-78) U/L Alkaline Phosphatase (46-116) U/L Troponin I < 0.017 < 0.017 < 0.017 (0.000-0.056) ng/ml Serum Total Protein (6.4-8.2) gm/dL Albumin (3.4-5.0) g/dL 09/25/17 09/25/17 09/25/17 Range/Units 05:14 05:14 05:14 WBC 15.9 H (4.0-10.5) K/mm3 RBC 3.71 L (4.1-5.4) M/mm3 Hgb 11.3 L (12.0-16.0) gm/dl Hct 35.2 (35-47) % MCV 94.9 (78-100) fl MCH 30.4 (26-32) pg MCHC 32.1 (32-36) g/dl RDW 15.5 H (11.5-14.0) % Plt Count 230 (150-450) K/mm3 MPV 11.8 H (6-9.5) fl Segmented Neutrophils 76 H (36.0-66.0) % Lymphocytes (Manual) 22 L (24-44) % Monocytes (Manual) 2 (0.0-12.0) % Differential Comment NORMAL Platelet Estimate NORMAL (NORMAL) Sodium 140 (136-145) mEq/L Potassium 4.3 (3.5-5.1) mEq/L Chloride 110 H (98-107) mEq/L Carbon Dioxide 21.0 (21-32) mEq/L Anion Gap 13.2 (5-15) MEQ/L BUN 50 H (9-20) mg/dL Creatinine 2.63 H (0.55-1.30) mg/dl Estimated GFR 19 ML/MIN Glucose 175 H (70-110) MG/DL Calcium 8.5 (8.5-10.1) mg/dL Total Bilirubin 0.50 (0.2-1.0) mg/dL AST 26 (15-37) U/L ALT 7 L (12-78) U/L Alkaline Phosphatase 54 (46-116) U/L Troponin I 0.022 (0.000-0.056) ng/ml Serum Total Protein 6.2 L (6.4-8.2) gm/dL Albumin 3.0 L (3.4-5.0) g/dL Assessment/Plan (1) Acute kidney failure Current Visit: Yes Status: Acute Assessment & Plan: she had creat of 0.7 3 months ago. she was started on prophylactic trimethoprim but not clear exactly how long ago if this is causing it or dehydration will add a CK, urine eosinophil, urine FeNa and a renal ultrasound the renal failure low temp and hypotension are improving with rehydration change fluids to 1/2 NS now with the elevated chloride and monitor the renal function stop the rossy inhibitor and trimethoprim hold the hctz monitor I/O continue insulin for the hyperglycemia from diabetes (2) Dehydration Current Visit: Yes Status: Acute Code(s): E86.0 - DEHYDRATION (3) Hypotension Current Visit: Yes Status: Acute Qualifiers: Hypotension type: unspecified hypotension type Qualified Code(s): I95.9 - Hypotension, unspecified Code(s): I95.9 - HYPOTENSION, UNSPECIFIED (4) DM w/o complication type II Current Visit: Yes Status: Chronic Code(s): E11.9 - TYPE 2 DIABETES MELLITUS WITHOUT COMPLICATIONS (5) Parkinson disease Current Visit: Yes Status: Chronic Code(s): G20 - PARKINSON'S DISEASE
[2017-09-25 08:03] LABS: 027 TOX PROD PRESUMPTIVE NEGATIVE (NEGATIVE); TOXIGENIC C. DIFF ORG NEGATIVE (NEGATIVE)
[2017-09-25] MEDS ORDERED: Klor Con 10 MEQ PO SCH (10:00)
[2017-09-25] MEDS: Namenda 5 MG PO SCH ×2 (10:28→22:09)
[2017-09-25] MEDS: ELIQUIS PO SCH ×2 (10:29→22:09)
[2017-09-25] MEDS: Pepcid 20 MG PO SCH ×2 (10:31→22:09)
[2017-09-25] MEDS: Aricept 10 MG PO SCH ×2 (10:32→22:09)
[2017-09-25] MEDS: Sinemet 25/250 MG PO SCH ×2 (10:33→22:09)
[2017-09-25] MEDS: NovoLOG Insulin SQ SCH ×2 (12:34→17:14)
--- NOTE | 2017-09-25 13:00 | XRAY ---
Indication: Renal failure. Two-dimensional renal sonogram performed. Comparison: None Both kidneys normal in reniform shape with normal color perfusion. The right kidney measures 10.7 x 3.7 x 4.2 cm and the left measures 10.9 x 4.6 x 5.1 cm. No suspicious solid/cystic mass, hydronephrosis, or perinephric fluid. Cortical medullary differentiation preserved without cortical thinning. Urinary bladder is empty via Werner catheter. Impression: Negative renal sonogram.
[2017-09-25 14:34] LABS: CREATININE,URINE RANDOM 75.04 MG/DL (30-125); PROTEIN,URINE RANDOM 49.8 mg/dL; Sodium, Urine 109.2 MMOL
[2017-09-25] MEDS: Zocor 10MG PO SCH (22:09)
[2017-09-25] MEDS: Lantus Insulin SQ SCH (22:41)
[2017-09-26 04:26] LABS: Creatinine,Random Urine 77.4 mg/dL; Protein,Total, Random Urine 19 mg/dL; Protein/Creatinine Ratio 0.25 mg/mg (0.00-0.19)
[2017-09-26 05:36] LABS: Hematocrit 34.1 % (35-47); Hemoglobin 11.1 gm/dl (12.0-16.0); Mean Corpuscular Hemoglobin 30.9 pg (26-32); Mean Corpuscular Hgb Concent. 32.6 g/dl (32-36); Mean Platelet Volume 12.1 fl (6-9.5); Platelet Count 206 K/mm3 (150-450); Red Blood Count 3.59 M/mm3 (4.1-5.4); Red Cell Distribution Width 15.4 % (11.5-14.0); White Blood Count 13.8 K/mm3 (4.0-10.5)
[2017-09-26 06:00] LABS: ANION GAP 15.1 MEQ/L (5-15); Calcium 8.1 mg/dL (8.5-10.1); Carbon Dioxide 19.3 mEq/L (21-32); Creatinine 1 1.38 mg/dl (0.55-1.30); MAGNESIUM 1.3 mg/dL (1.8-2.4); Potassium 3.8 mEq/L (3.5-5.1)
--- NOTE | 2017-09-26 08:16 | PCM.NOTE ---
Date and Time: 09/26/17815 Subjective Assessment: States she is feeling better today no pain just tired states no short of breath. Objective Exam General Appearance: no apparent distress, alert Neurologic Exam: alert, cooperative, normal mood/affect Skin Exam: normal color, warm, dry Eye Exam: PERRL, EOMI, eyes nml inspection Ears, Nose, Throat Exam: normal ENT inspection, pharynx normal, moist mucous membranes Neck Exam: normal inspection, non-tender, supple, full range of motion Respiratory Exam: normal breath sounds, lungs clear, No respiratory distress Cardiovascular Exam: regular rate/rhythm, normal heart sounds Gastrointestinal/Abdomen Exam: soft, No tenderness, No mass Extremity Exam: normal inspection, normal range of motion Back Exam: normal inspection, normal range of motion, No CVA tenderness, No vertebral tenderness Pelvic Exam: deferred Rectal Exam: deferred OBJECTIVE DATA Vital Signs: Vital Signs - 24 hr Temp Pulse Resp BP Pulse Ox 09/26/17 07:19 98.2 F 69 18 152/70 95 09/26/17 04:00 98.5 F 62 18 169/70 94 L 09/26/17 00:00 97.6 F 72 16 118/58 93 L 09/25/17 20:00 98.2 F 72 18 143/66 94 L 09/25/17 19:52 94 L 09/25/17 16:00 97.5 F 60 18 122/59 97 09/25/17 12:51 98.0 F 80 18 116/53 94 L 09/25/17 11:21 98.0 F 80 18 116/53 94 L Pain Assessment - Last Documented Pain Intensity 0 Pain Scale Used 0-10 Pain Scale Intake and Output: Intake & Output 09/23/17 09/24/17 09/25/17 09/26/17 11:59 11:59 11:59 11:59 Intake Total 1197 3170 Output Total 400 750 Balance 797 2420 Weight 73.6 kg Lab Results: Accuchecks Date 09/25/17 Accucheck Value: 119 Accucheck Value: 104 Accucheck Value: 193 Lab Results-Last 24 Hours 09/25/17 09/25/17 09/26/17 Range/Units 05:00 14:38 05:00 WBC 13.8 H (4.0-10.5) K/mm3 RBC 3.59 L (4.1-5.4) M/mm3 Hgb 11.1 L (12.0-16.0) gm/dl Hct 34.1 L (35-47) % MCV 95.0 (78-100) fl MCH 30.9 (26-32) pg MCHC 32.6 (32-36) g/dl RDW 15.4 H (11.5-14.0) % Plt Count 206 (150-450) K/mm3 MPV 12.1 H (6-9.5) fl Sodium (136-145) mEq/L Potassium (3.5-5.1) mEq/L Chloride (98-107) mEq/L Carbon Dioxide (21-32) mEq/L Anion Gap (5-15) MEQ/L BUN (9-20) mg/dL Creatinine (0.55-1.30) mg/dl Estimated GFR ML/MIN Glucose (70-110) MG/DL Calcium (8.5-10.1) mg/dL Magnesium (1.8-2.4) mg/dL Creatine Kinase 253 H (26-192) U/L Ur Random Creatinine 75.04 (30-125) MG/DL U Random Total Protein 49.8 mg/dL Urine Sodium 109.2 MMOL 18 Range/Units 05:00 WBC (4.0-10.5) K/mm3 RBC (4.1-5.4) M/mm3 Hgb (12.0-16.0) gm/dl Hct (35-47) % MCV (78-100) fl MCH (26-32) pg MCHC (32-36) g/dl RDW (11.5-14.0) % Plt Count (150-450) K/mm3 MPV (6-9.5) fl Sodium 138 (136-145) mEq/L Potassium 3.8 (3.5-5.1) mEq/L Chloride 107 (98-107) mEq/L Carbon Dioxide 19.3 L (21-32) mEq/L Anion Gap 15.1 H (5-15) MEQ/L BUN 31 H (9-20) mg/dL Creatinine 1.38 H (0.55-1.30) mg/dl Estimated GFR 39 ML/MIN Glucose 109 (70-110) MG/DL Calcium 8.1 L (8.5-10.1) mg/dL Magnesium 1.3 L (1.8-2.4) mg/dL Creatine Kinase (26-192) U/L Ur Random Creatinine (30-125) MG/DL U Random Total Protein mg/dL Urine Sodium MMOL Radiology Exams: Radiology Procedures Category Date Time Status KIDNEY [US] Routine Exams 09/25/17 12:30 Completed Assessment/Plan (1) Acute kidney failure Current Visit: Yes Status: Acute Assessment & Plan: improving with hydration continue iv replacement replace mag recheck in am (2) Dehydration Current Visit: Yes Status: Acute Code(s): E86.0 - DEHYDRATION (3) Hypotension Current Visit: Yes Status: Acute Qualifiers: Hypotension type: unspecified hypotension type Qualified Code(s): I95.9 - Hypotension, unspecified Code(s): I95.9 - HYPOTENSION, UNSPECIFIED (4) DM w/o complication type II Current Visit: Yes Status: Chronic Code(s): E11.9 - TYPE 2 DIABETES MELLITUS WITHOUT COMPLICATIONS (5) Parkinson disease Current Visit: Yes Status: Chronic Code(s): G20 - PARKINSON'S DISEASE
[2017-09-26] MEDS: NovoLOG Insulin SQ SCH ×3 (10:28→16:21)
[2017-09-26] MEDS: Magnesium 1 Gm / 100 Ml D5W*** 100 ML IV SCH ×2 (10:33→12:25)
[2017-09-26] MEDS: Aricept 10 MG PO SCH ×2 (10:37→22:02)
[2017-09-26] MEDS: ELIQUIS PO SCH ×2 (10:37→22:02)
[2017-09-26] MEDS: Sinemet 25/250 MG PO SCH ×2 (10:38→22:04)
[2017-09-26] MEDS: Pepcid 20 MG PO SCH ×2 (10:38→22:04)
[2017-09-26] MEDS: Namenda 5 MG PO SCH ×2 (10:39→22:03)
[2017-09-26] MEDS: Lantus Insulin SQ SCH (22:03)
[2017-09-26] MEDS: Zocor 10MG PO SCH (22:04)
[2017-09-27 06:17] LABS: Hematocrit 36.1 % (35-47); Hemoglobin 12.2 gm/dl (12.0-16.0); Mean Corpuscular Hemoglobin 31.4 pg (26-32); Mean Corpuscular Hgb Concent. 33.8 g/dl (32-36); Mean Platelet Volume 11.6 fl (6-9.5); Platelet Count 207 K/mm3 (150-450); Red Blood Count 3.88 M/mm3 (4.1-5.4); Red Cell Distribution Width 14.9 % (11.5-14.0); White Blood Count 15.2 K/mm3 (4.0-10.5)
[2017-09-27 06:39] LABS: ANION GAP 12.4 MEQ/L (5-15); Calcium 7.6 mg/dL (8.5-10.1); Carbon Dioxide 22.6 mEq/L (21-32); Creatinine 1 1.02 mg/dl (0.55-1.30); MAGNESIUM 1.7 mg/dL (1.8-2.4); Potassium 3.5 mEq/L (3.5-5.1)
[2017-09-27 07:33] VITALS: BP 183/77; PULSE 61; O2SAT 96
--- NOTE | 2017-09-27 08:33 | PCM.DS ---
Discharge Summary Date of Admission: 09/26/17 08:10 Date of Discharge: 09/27/17 Admitting Physician: JOSE PICKENS Primary Care Provider: TORSTEN HOLGUIN Allergies Allergies Penicillins Allergy (Verified 09/27/17 11:40) [facility] Summary - Hospital Course Hospital Course: She presented to the ED from care home where she was found to be fatigued nasueated and have a low temperature and low blood pressure. In ED she was found to have significant renal failure that was new compared to her baseline creatinine of 0.9 last checked 3 months ago. She had her lisinopril and trimethroprim stopped and was given fluid rehydration and urine studies and renal ultrasound completed. She had improvement in renal function with the hydration and good urine output. Her energy improved and she was eating well. She had low magnesium and it was corrected. Her sinemet is increased and her trimethoprim stopped for now monitor renal function outpatient she was improved [facility] & Intake/Output Vital Signs: Vital Signs Temperature 98.5 F 09/27/17 07:33 Pulse Rate 61 09/27/17 07:33 Respiratory Rate 18 09/27/17 07:33 Blood Pressure 183/77 09/27/17 07:33 O2 Sat by Pulse Oximetry 96 09/27/17 07:33 Intake & Output: Intake & Output 09/24/17 09/25/17 09/26/17 09/27/17 11:59 11:59 11:59 11:59 Intake Total 2711 Output Total 3100 Balance -389 - Lab Result Diagrams: 09/27/17 05:25 09/27/17 05:25 Lab Results-Last 24 Hrs: Accuchecks Date 09/26/17 Date 09/26/17 Time 16:21 Time 11:30 Accucheck Value: 126 Accucheck Value: 183 Lab Results-Last 24 Hours 09/27/17 09/27/17 Range/Units 05:25 05:25 WBC 15.2 H (4.0-10.5) K/mm3 RBC 3.88 L (4.1-5.4) M/mm3 Hgb 12.2 (12.0-16.0) gm/dl Hct 36.1 (35-47) % MCV 93.0 (78-100) fl MCH 31.4 (26-32) pg MCHC 33.8 (32-36) g/dl RDW 14.9 H (11.5-14.0) % Plt Count 207 (150-450) K/mm3 MPV 11.6 H (6-9.5) fl Sodium 137 (136-145) mEq/L Potassium 3.5 (3.5-5.1) mEq/L Chloride 105 (98-107) mEq/L Carbon Dioxide 22.6 (21-32) mEq/L Anion Gap 12.4 (5-15) MEQ/L BUN 17 (9-20) mg/dL Creatinine 1.02 (0.55-1.30) mg/dl Estimated GFR 56 ML/MIN Glucose 92 (70-110) MG/DL Calcium 7.6 L (8.5-10.1) mg/dL Magnesium 1.7 L (1.8-2.4) mg/dL Micro Results-Entire Visit: Accuchecks Date 09/26/17 Date 09/26/17 Time 16:21 Time 11:30 Accucheck Value: 126 Accucheck Value: 183 Discharge Exam General Appearance: no apparent distress, alert Neurologic Exam: alert, oriented x 3, cooperative, normal mood/affect, nml cerebellar function, sensation nml, No motor deficits Skin Exam: normal color, warm, dry Eye Exam: PERRL, EOMI, eyes nml inspection Ears, Nose, Throat Exam: normal ENT inspection, pharynx normal, moist mucous membranes Neck Exam: normal inspection, non-tender, supple, full range of motion Respiratory Exam: normal breath sounds, lungs clear, No respiratory distress Cardiovascular Exam: regular rate/rhythm, normal heart sounds Gastrointestinal/Abdomen Exam: soft, No tenderness, No mass Extremity Exam: normal inspection, normal range of motion Back Exam: normal inspection, normal range of motion, No CVA tenderness, No vertebral tenderness Pelvic Exam: deferred Rectal Exam: deferred Final Diagnosis/Problem List - Final Discharge Diagnosis/Problem (1) Acute kidney failure Status: Acute (2) Dehydration Status: Acute (3) Hypotension Status: Acute (4) DM w/o complication type II Status: Chronic (5) Parkinson disease Status: Chronic - Discharge Discharge Date: 09/27/17 Disposition: [place] TO [facility] Condition: Stable Prescriptions: Continue Magnesium Hydroxide 30 ml [Milk of Magnesia 30 ml] 30 ml PO BID PRN PRN PRN Reason: Constipation Insulin Detemir [Levemir] 10 unit SQ HS Hydrochlorothiazide 25 mg [hydroDIURIL 25 MG] 12.5 mg PO DAILY Apixaban [Eliquis] 2.5 mg PO BID Donepezil HCl 10 mg [Aricept 10 MG] 10 mg PO BID Glucagon 1 mg [GlucaGen 1 MG] 1 mg SQ UD PRN PRN Reason: Hypoglycemia Insulin Aspart [NovoLOG Insulin] 5 units SQ AC Memantine HCl 10 mg PO BID Potassium Chloride 8 meq PO BID Famotidine [Pepcid] 20 mg PO BID Atorvastatin Calcium 10 mg PO HS Changed Carbidopa/Levodopa [Carbidopa-Levodopa 25-250 Tab] 1 each PO TID #0 Discontinued Lisinopril 20 mg [Zestril 20 MG] 20 mg PO DAILY Alendronate Sodium 70 mg [Fosamax 70 MG] 70 mg PO Q7D@0600 Trimethoprim 100 mg PO DAILY Multivitamin [Multi-Vitamin Daily] 1 each PO DAILY Additional Instructions: ASHIA AVILA [facility] ORDERS: SEE ATTACHED MED LIST FOR CURRENT MED ORDERS RESUME ALL OTHER [facility] ORDERS Follow up with: JAIME AVILA [Family Provider] - Forms: Transfer Record [facility]
[2017-09-27] MEDS: NovoLOG Insulin SQ SCH (08:57)
[2017-09-27] MEDS: Pepcid 20 MG PO SCH (09:46)
[2017-09-27] MEDS: Namenda 5 MG PO SCH (09:46)
[2017-09-27] MEDS: ELIQUIS PO SCH (09:46)
[2017-09-27] MEDS: Sinemet 25/250 MG PO SCH (09:46)
[2017-09-27] MEDS: Aricept 10 MG PO SCH (09:46)
== END 2017-09-27 11:05 | DRG 684 ==
LOC: ED 16:33 → MED SURG 19:37 → OBSVTOIN 09-26 08:10
PROVIDERS: ADMIT Family Medicine; ATTEND Family Medicine
DX: N17.9 Acute kidney failure, unspecified (principal); N19 Unspecified kidney failure; E86.0 Dehydration; I95.9 Hypotension, unspecified; E11.9 Type 2 diabetes mellitus without complications; Z79.4 Long term (current) use of insulin; G20 Parkinson's disease; F02.80 Dementia in other diseases classified elsewhere, unspecified severity, without behavioral disturbance, psychotic disturbance, mood disturbance, and anxiety; I10 Essential (primary) hypertension; Z95.0 Presence of cardiac pacemaker; Z79.01 Long term (current) use of anticoagulants; Z79.899 Other long term (current) drug therapy; Z86.718 Personal history of other venous thrombosis and embolism
CPT/HCPCS: 36000; 36415; 51702; 71045; 76770; 80048; 80053; 81000; 82150; 82550; 82570; 82805; 82962; 83605; 83690; 83735; 83880; 84156; 84300; 84484; 85025; 85027; 87040; 87086; 87205; 87493; 93005; 93268; 96360; 96361; 99285; G0378; J3475; A9270-GY

== ENCOUNTER 2017-09-27 11:22 | Emergency (ER) | payer MEDICARE, OTHER ==
[2017-09-27 11:39] VITALS: PULSE 60
--- NOTE | 2017-09-27 11:42 | ERPHSYRPT ---
- History of Present Illness Time Seen by Provider: 09/27/17 11:35 Source: patient Exam Limitations: no limitations Physician History: The patient is a 77-year-old female who complains of falling while being transferred from a wheelchair to a van, in order for her to return from [facility] to the senior living. The patient has dementia. She states that she fell on her backside. The the transfer crew stated she fell on her right hip. The patient states she has pain in her buttocks that has been there for 2 years. She did not hit her head. She did not lose consciousness. Occurred: just prior to arrival Reason for Fall: lost balance Injuries/Pain Location: lower extremity Loss of Consciousness: no loss of consciousness Quality: aching Severity of Pain-Max: mild Severity of Pain-Current: mild Modifying Factors: Improves With: nothing Associated Symptoms (Fall): denies symptoms Allergies/Adverse Reactions: Penicillins Allergy (Verified 09/27/17 11:40) Hives Home Medications: Apixaban [Eliquis] 2.5 mg PO BID 11/25/16 [History] Donepezil HCl 10 mg [Aricept 10 MG] 10 mg PO BID 11/25/16 [History] Glucagon 1 mg [GlucaGen 1 MG] 1 mg SQ UD PRN 11/25/16 [History] Hydrochlorothiazide 25 mg [hydroDIURIL 25 MG] 12.5 mg PO DAILY 11/25/16 [ History] Insulin Detemir [Levemir] 10 unit SQ HS 11/25/16 [History] Magnesium Hydroxide 30 ml [Milk of Magnesia 30 ml] 30 ml PO BID PRN PRN [History] Atorvastatin Calcium 10 mg PO HS 09/24/17 [History] Famotidine [Pepcid] 20 mg PO BID 09/24/17 [History] Insulin Aspart [NovoLOG Insulin] 5 units SQ AC 09/24/17 [History] Memantine HCl 10 mg PO BID 09/24/17 [History] Potassium Chloride 8 meq PO BID 09/24/17 [History] Hx Tetanus, Diphtheria Vaccination/Date Given: Yes Hx Influenza Vaccination/Date Given: Yes Hx Pneumococcal Vaccination/Date Given: Yes - Review of Systems Constitutional: No Fever, No Chills Eyes: No Symptoms Ears, Nose, & Throat: No Symptoms Respiratory: No Cough, No Dyspnea Cardiac: No Chest Pain, No Edema, No Syncope Abdominal/Gastrointestinal: No Abdominal Pain, No Nausea, No Vomiting, No Diarrhea Genitourinary Symptoms: No Dysuria Musculoskeletal: Fall, No Back Pain, No Neck Pain Skin: No Rash Neurological: Other (dementia) Psychological: No Symptoms Endocrine: No Symptoms Hematologic/Lymphatic: No Symptoms Immunological/Allergic: No Symptoms All Other Systems: Reviewed and Negative - Past Medical History Pertinent Past Medical History: Yes Neurological History: Dementia, Other ENT History: No Pertinent History Cardiac History: Deep Vein Thrombosis, Hypertension Respiratory History: No Pertinent History Endocrine Medical History: Diabetes Type II Musculoskeletal History: No Pertinent History GI Medical History: No Pertinent History History: No Pertinent History Psycho-Social History: No Pertinent History Female Reproductive Disorders: No Pertinent History Other Medical History: Parkinsons - Past Surgical History Past Surgical History: Yes Neuro Surgical History: No Pertinent History Cardiac: No Pertinent History, Pacemaker Respiratory: No Pertinent History Gastrointestinal: No Pertinent History Genitourinary: No Pertinent History Musculoskeletal: Orthopedic Surgery Female Surgical History: Other Other Surgical History: D&C, tonsils, recent pacemaker - Social History Smoking Status: Never smoker Exposure to second hand smoke: No Drug Use: none Patient Lives Alone: No - Nursing Vital Signs Nursing Vital Signs: Initial Vital Signs Temperature 97.8 F 09/27/17 11:30 Pulse Rate 60 09/27/17 11:30 Respiratory Rate 16 09/27/17 11:30 Blood Pressure 140/75 09/27/17 11:30 Pain Scale Pain Intensity 0 - Hooper Coma Score Best Eye Response (Bianca): (4) open spontaneously Best Verbal Response (Bianca): (5) oriented Best Motor Response (Bianca): (6) obeys commands Hooper Total: 15 - Physical Exam General Appearance: no apparent distress, alert Head Injury: no evidence of injury Eye Exam: PERRL/EOMI ENT Exam: airway nml Neck Exam: normal inspection, No tenderness Respiratory/Chest Exam: normal breath sounds, No chest tenderness, No respiratory distress Cardiovascular Exam: normal heart sounds, regular rate/rhythm Gastrointestinal Exam: soft, No tenderness, No distention, No guarding, No ecchymosis Rectal Exam: not done Back Exam: normal inspection, No vertebral tenderness Extremity Exam: normal inspection, normal range of motion, pelvis stable, No deformities Neurologic Exam: alert, oriented x 3, cooperative, sensation nml, No motor deficits Skin Exam: normal color, warm, dry SpO2 Interpretation: normal - Radiology Exams L-Spine X-ray Interpretation: Teleradiologist Report, Negative (per Dr Berkowitz) Pelvis X-ray Interpretation: Teleradiologist Report, Negative (per Dr Berkowitz) Left Hip X-ray Interpretation: Teleradiologist Report, Negative (per Dr Berkowitz) Right Hip X-ray Interpretation: Teleradiologist Report, Negative (per Dr Berkowitz.) Ordered Tests: Active Orders 24 hr Category Date Time Status HIP LAMONTE (4V) INCL PELV IF DONE Stat Exams 09/27/17 11:44 Completed LUMBAR LIMITED (2 OR 3 VIEWS) Stat Exams 09/27/17 11:44 Completed - Progress Progress: unchanged Counseled pt/family regarding: diagnosis, rad results - Departure Time of Disposition: 12:44 Departure Disposition: Home Clinical Impression: Fall Condition: Stable Critical Care Time: No Referrals: TORSTEN HOLGUIN [Primary Care Provider] -
--- NOTE | 2017-09-27 12:31 | XRAY ---
Indication: Pain following fall. Comparison: AP pelvis exam November 25, 2016. AP pelvis and 2 views of the left and right hip demonstrates stable osteopenia, bilateral acetabular spurring, lower lumbar degenerative changes, old proximal left femur fracture with 3 intact orthopedic screws, and scattered vascular calcifications. No new/acute findings.
--- NOTE | 2017-09-27 12:34 | XRAY ---
Indication: Low back pain following fall. Comparison: April 12, 2016. 3 views of the lumbar spine demonstrates stable osteopenia, multilevel degenerative spondylosis including bilateral L4-S1 degenerative facet arthropathy, grade 1 L4 spondylolisthesis, partially visualized left femur head orthopedic screws, and scattered vascular calcifications. No new/acute findings.
[2017-09-27 12:38] VITALS: BP 160/76; O2SAT 99
== END 2017-09-27 13:39 ==
LOC: ED 11:22
DX: Z03.89 Encounter for observation for other suspected diseases and conditions ruled out (principal); W18.30XA Fall on same level, unspecified, initial encounter; Y93.89 Activity, other specified; F03.90 Unspecified dementia, unspecified severity, without behavioral disturbance, psychotic disturbance, mood disturbance, and anxiety; Z79.899 Other long term (current) drug therapy; E11.9 Type 2 diabetes mellitus without complications
CPT/HCPCS: 72100; 73522; 99283